=== PATIENT | female | born 1965 | race Caucasian/White ===

== ENCOUNTER 2016-09-04 10:26 | Emergency (ER) | payer OTHER ==
[~2016-09-04] VITALS: Ht 149.9 cm; Wt 72.6 kg
[2016-09-04 12:06] LABS: ABSOLUTE BASOPHIL COUNT 0.1 /CUMM (0.0-0.2); ABSOLUTE EOSINOPHIL COUNT 0.1 /CUMM (0.0-0.7); ABSOLUTE GRANULOCYTE CT 11.3 /CUMM (1.4-6.5); ABSOLUTE LYMPH COUNT 2.2 /CUMM (1.2-3.4); ABSOLUTE MONOCYTE COUNT 0.7 /CUMM (0.10-0.60); BASOPHIL % 0.3 % (0.0-2.0); EOSINOPHIL % 0.5 % (0-5); HEMATOCRIT 43.4 % (37-47); MEAN CORPUSCULAR HGB 27.4 PG (27.0-31.0); MEAN CORPUSCULAR HGB CONC 33.6 G/DL (33.0-37.0); MEAN CORPUSCULAR VOLUME 81.5 FL (81.0-99.0); MEAN PLATELET VOLUME 7.3 FL (7.4-10.4); PLATELET COUNT 446 /CUMM (130-400); RBC DISTRIBUTION WIDTH 13.5 % (11.5-14.5); RED BLOOD CELL CT 5.33 /CUMM (4.20-5.40); WHITE BLOOD CELL COUNT 14.4 /CUMM (4.8-10.8)
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
[2016-09-04 12:15] LABS: GRANULOCYTE % 78.8 % (42.2-75.2)
[2016-09-04] MEDS ORDERED: ALPRAZOLAM2 M2 PO (12:50)
[2016-09-04] MEDS ORDERED: MULTI-DAY VITA1 EACH PO (12:51)
[2016-09-04] MEDS ORDERED: DULOXETINE HCL30 MG PO (12:51)
[2016-09-04] MEDS ORDERED: LIALDA1.2 G1 PO (12:53)
[2016-09-04] MEDS ORDERED: FISH OIL 1,0001 EACH PO (12:53)
[2016-09-04] MEDS ORDERED: VITAMIN D31000 UNI2 PO (12:54)
[2016-09-04] MEDS ORDERED: DICYCLOMINE HCL10 M1 PO (12:54)
[2016-09-04] MEDS ORDERED: ADVAIR 250-501 EACH INH (12:55)
[2016-09-04] MEDS ORDERED: ALBUTEROL2.5 MG/3 M INH/SOL (12:55)
[2016-09-04] MEDS ORDERED: IPRATROPIU0.2 MG/1 M INH/SOL (12:56)
--- NOTE | 2016-09-04 14:43 | CT SCAN REPORT ---
EXAMINATION: CT ABDOMEN AND PELVIS WITH CONTRAST CLINICAL INFORMATION: 50-year-old female patient with abdominal pain. COMPARISON: CT of the abdomen and pelvis on 03/29/2009. TECHNIQUE: Multidetector volumetric imaging was performed of the abdomen and pelvis before and after the IV administration of 94 mL of Optiray 220 intravenous contrast. Sagittal and coronal reformatted images were obtained on the technologist's workstation. DLP: 338 mGy-cm FINDINGS: LUNG BASES: The visualized lung bases are unremarkable. LIVER, GALLBLADDER, AND BILIARY TREE: The liver is normal in size, shape, and attenuation. No focal hepatic lesion or biliary ductal dilatation is present. The gallbladder is unremarkable with no evidence of radiopaque gallstones, gallbladder wall thickening, or obvious pericholecystic inflammatory changes. PANCREAS: Unremarkable. SPLEEN: Unremarkable. ADRENAL GLANDS: Unremarkable. KIDNEYS AND URETERS: The left kidney is totally atrophic but does barely function in that there is a cortical nephrogram. The right kidney measures 11.6 cm in length and shows no evidence of hydronephrosis or stone formation. No intrarenal mass lesion is seen. There is no perinephric stranding. BLADDER: Nearly empty but normal. GASTROINTESTINAL TRACT: The small and large bowel are unremarkable. The stomach is decompressed. The appendix is not visualized but there are no pericecal inflammatory changes seen. There is no free air or free fluid. Diverticular disease involves the sigmoid colon. There is no diverticulitis. ABDOMINAL WALL: No significant hernia is appreciated. LYMPH NODES: Normal. VASCULAR: Unremarkable. PELVIC VISCERA: Uterus has been removed. The adnexa are normal. OSSEOUS STRUCTURES: Unremarkable. IMPRESSION: 1. No evidence of free intra-abdominal air, fluid, or inflammatory reaction. 2. "Mini" left kidney. This usually occurs in utero as result of vascular ischemia.
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
[2016-09-05 15:29] VITALS: BP 107/67
== END 2016-09-05 18:20 ==
LOC: ERH 10:26
PROVIDERS: Physician Assistant
DX: R10.9 Unspecified abdominal pain (principal); R30.0 Dysuria; R35.0 Frequency of micturition; M54.5 Low back pain; Z87.820 Personal history of traumatic brain injury; F03.90 Unspecified dementia, unspecified severity, without behavioral disturbance, psychotic disturbance, mood disturbance, and anxiety
CPT/HCPCS: 74177; 80307; 81001; 96374; 96375; 96376; G0463; G0480; J0131; J2405

== ENCOUNTER 2016-09-14 12:07 | Emergency (ER) | payer OTHER ==
[~2016-09-14] VITALS: Ht 162.6 cm; Wt 72.6 kg
[~2016-09-14 12:07] MED LIST: ADVAIR 250-501 EACH INH; ALBUTEROL2.5 MG/3 M INH/SOL; ALPRAZOLAM2 M2 PO; DICYCLOMINE HCL10 M1 PO; DULOXETINE HCL30 MG PO; FISH OIL 1,0001 EACH PO; IPRATROPIU0.2 MG/1 M INH/SOL; LIALDA1.2 G1 PO; MULTI-DAY VITA1 EACH PO; VITAMIN D31000 UNI2 PO
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
[2016-09-14 12:47] LABS: ABSOLUTE BASOPHIL COUNT 0 /CUMM (0.0-0.2); ABSOLUTE EOSINOPHIL COUNT 0.4 /CUMM (0.0-0.7); ABSOLUTE GRANULOCYTE CT 5.5 /CUMM (1.4-6.5); ABSOLUTE LYMPH COUNT 2.4 /CUMM (1.2-3.4); ABSOLUTE MONOCYTE COUNT 0.8 /CUMM (0.10-0.60); BASOPHIL % 0.2 % (0.0-2.0); EOSINOPHIL % 4.2 % (0-5); GRANULOCYTE % 60.1 % (42.2-75.2); HEMATOCRIT 39.9 % (37-47); MEAN CORPUSCULAR HGB 27.9 PG (27.0-31.0); MEAN CORPUSCULAR VOLUME 82.2 FL (81.0-99.0); MEAN PLATELET VOLUME 7.3 FL (7.4-10.4); PLATELET COUNT 309 /CUMM (130-400); RBC DISTRIBUTION WIDTH 13.4 % (11.5-14.5); RED BLOOD CELL CT 4.85 /CUMM (4.20-5.40); WHITE BLOOD CELL COUNT 9.1 /CUMM (4.8-10.8)
[2016-09-14] MEDS ORDERED: DEXTROAMP-AMPHE30 MG PO (13:14)
[2016-09-14] MEDS ORDERED: BICARSIM80 M1 PO (13:19)
[2016-09-14] MEDS ORDERED: WELLBUTRIN SR150 M1 PO (13:19)
[2016-09-14] MEDS ORDERED: BENGAY113 GM TD (13:20)
[2016-09-14] MEDS ORDERED: ZANTAC150 M1 PO (13:21)
[2016-09-14] MEDS ORDERED: OMEPRAZOLE20 M2 PO (13:21)
[2016-09-14] MEDS ORDERED: PROAIR HFA8.5 GM INH (13:22)
[2016-09-14] MEDS ORDERED: [UNRECOGNIZED DRUG - OTHER] INH (13:25)
[2016-09-14] MEDS ORDERED: IPRAT-ALBUT 0.5-3 ML INH (13:27)
[2016-09-14 14:32] VITALS: BP 112/78
== END 2016-09-14 15:03 ==
LOC: ERH 12:07
PROVIDERS: Emergency Medicine
DX: F13.10 Sedative, hypnotic or anxiolytic abuse, uncomplicated (principal); T50.995A Adverse effect of other drugs, medicaments and biological substances, initial encounter
CPT/HCPCS: 80307; 93005; 93010; G0480